=== PATIENT | female | born 1975 | race Caucasian/White ===

== ENCOUNTER 2017-03-24 19:08 | Emergency (ER) | payer MEDICAID ==
[~2017-03-24] VITALS: Ht 154.9 cm; Wt 81.0 kg
[2017-03-25 00:05] LABS: BASOPHILS % 0.7 % (0.0-2.0); EOSINOPHILS % 2.5 % (0.0-5.0); HEMATOCRIT. 38.7 % (36.0-48.0); HEMOGLOBIN. 13.2 g/dL (12.0-16.0); LYMPHOCYTES % 17.6 % (20.0-50.0); MEAN CORPUSCULAR HEMOGLOBIN 29.6 pg (28.0-32.0); MEAN CORPUSCULAR VOLUME 86.9 fL (81.0-99.0); MEAN PLATELET VOLUME 11.1 fl (7.4-10.4); MONOCYTES % 4.6 % (2.0-8.0); NEUTROPHILS % 74.6 % (40.0-76.0); PLATELET 172 x1000/uL (130-400); RED BLOOD CELL COUNT 4.45 mill/uL (4.2-5.4); RED CELL DISTRIBUTION WIDTH 14.2 % (11.6-14.6)
[2017-03-25 00:07] LABS: CHLORIDE 107 mEq/L (98-107)
[2017-03-25 00:18] LABS: B-HCG QUANTITATIVE 444 mIU/mL (<3); CARBON DIOXIDE 25 mEq/L (21-32)
[2017-03-25 00:43] LABS: CLARITY URINE TURBID (CLEAR); COLOR URINE RED (YELLOW); GLUCOSE URINE NEGATIVE (NEGATIVE); KETONES URINE NEGATIVE (NEGATIVE); LEUKOCYTE ESTERASE URINE 3+ (NEGATIVE); NITRITE URINE NEGATIVE (NEGATIVE); OCCULT BLOOD URINE 3+ (NEGATIVE); PH URINE 5.5 (4.5-8.0); PROTEIN URINE 2+ (NEGATIVE); SPECIFIC GRAVITY URINE 1.036 (1.005-1.030)
[2017-03-25 00:55] VITALS: BP 127/81
== END 2017-03-25 02:10 | disposition home or self-care (01) ==
LOC: ER 23:48
DX: O03.88 Urinary tract infection following complete or unspecified spontaneous abortion (principal); N39.0 Urinary tract infection, site not specified; Z3A.01 Less than 8 weeks gestation of pregnancy
CPT/HCPCS: 36415; 76830; 76856; 80048; 81001; 84702; 85025; 86850; 86900; 99285

== ENCOUNTER 2017-03-28 10:10 | Emergency (ER) | payer MEDICAID ==
[~2017-03-28] VITALS: Ht 147.3 cm; Wt 84.0 kg
[2017-03-28 10:22] VITALS: BP 122/78
[2017-03-28] MEDS ORDERED: SODIUM CHLORIDE 0.9% 500 ML IV ONE (13:15)
[2017-03-28] MEDS ORDERED: ACETAMINOPHEN 325MG TABLET PO ONE (13:15)
[2017-03-28 13:42] LABS: BASOPHILS % 0.7 % (0.0-2.0); EOSINOPHILS % 3.3 % (0.0-5.0); HEMATOCRIT. 39.4 % (36.0-48.0); HEMOGLOBIN. 13.2 g/dL (12.0-16.0); MEAN CORPUSCULAR VOLUME 86.7 fL (81.0-99.0); MONOCYTES % 5.2 % (2.0-8.0); NEUTROPHILS % 68.8 % (40.0-76.0); PLATELET 187 x1000/uL (130-400); RED BLOOD CELL COUNT 4.55 mill/uL (4.2-5.4); RED CELL DISTRIBUTION WIDTH 13.6 % (11.6-14.6)
[2017-03-28 13:50] LABS: PARTIAL THROMBOPLASTIN TIME 28.5 sec (23.4-31.0); PROTHROMBIN TIME 10.7 sec (9.4-11.6)
[2017-03-28 14:00] LABS: B-HCG QUANTITATIVE 30 mIU/mL (<3); CARBON DIOXIDE 26 mEq/L (21-32); CHLORIDE 107 mEq/L (98-107)
[2017-03-28 15:49] LABS: CLARITY URINE CLEAR (CLEAR); COLOR URINE ORANGE (YELLOW); GLUCOSE URINE NEGATIVE (NEGATIVE); KETONES URINE NEGATIVE (NEGATIVE); LEUKOCYTE ESTERASE URINE 2+ (NEGATIVE); NITRITE URINE NEGATIVE (NEGATIVE); OCCULT BLOOD URINE 3+ (NEGATIVE); PH URINE 5.5 (4.5-8.0); PROTEIN URINE 1+ (NEGATIVE); SPECIFIC GRAVITY URINE 1.007 (1.005-1.030); UROBILINOGEN URINE 0.2 E.U./dL (0.2-1.0)
[2017-03-28 16:04] LABS: *AMPHETAMINES SCREEN URINE NEGATIVE (NEGATIVE); *BARBITURATES SCREEN URINE NEGATIVE (NEGATIVE); *BENZODIAZEPINES SCREEN URINE NEGATIVE (NEGATIVE); *COCAINE SCREEN URINE NEGATIVE (NEGATIVE); CANNABINOID URINE SCREEN NEGATIVE (NEGATIVE); METHADONE URINE SCREEN NEGATIVE (NEGATIVE); OPIATES URINE SCREEN NEGATIVE (NEGATIVE); PHENCYCLIDINE URINE SCREEN NEGATIVE (NEGATIVE)
[2017-03-28] MEDS ORDERED: NITROFURANTOIN 100MG M/M CAPSULE PO ONE (16:45)
== END 2017-03-28 18:07 | disposition home or self-care (01) ==
LOC: ER 11:30
DX: O20.9 Hemorrhage in early pregnancy, unspecified (principal); O12.11 Gestational proteinuria, first trimester; O26.891 Other specified pregnancy related conditions, first trimester; E86.0 Dehydration; R31.9 Hematuria, unspecified; R82.71 Bacteriuria; I10 Essential (primary) hypertension; E11.9 Type 2 diabetes mellitus without complications; Z3A.12 12 weeks gestation of pregnancy
CPT/HCPCS: 36415; 76830; 76856; 80053; 80305; 81001; 81025; 84702; 85025; 85610; 85730; 96360; 99285; J7040